=== PATIENT | male | born 1990 | race African-American/Black ===

== ENCOUNTER → 2017-03-08 | Outpatient (CLI) | payer OTHER ==
[~2017-03-08] MED LIST: LOMOTIL TABLET1 TAB PO; NO MEDICATIONS; ZOFRAN PO
--- NOTE | ~2017-03-08 | CR173 ---
[facility]. [facility] A Service of [facility] & [facility] RADIOLOGY TEXT RESULTS PATIENT: HUGH MARQUEZ LOCATION: [facility] : [birth year] UNIT #: [id number] AGE: [address]: Bo Flores MD SEX: M ORDER DR: [id number] [place] [id number] O MR#: [id number] Acc #: [id number] NAME: HUGH MARQUEZ : 1990 SEX: M STUDY DATE/TIME: 03/08/2017 14:07 UNIT: [facility] ROOM: STUDY DESCRIPTION: CR Knee 3 Views Rt Attending Physician: Bo Flores M.D. Referring Physician: Bo Flores M.D. Ordering Physician: Bo Flores M.D. Primary Care Physician: Bo Flores M.D. MEDICAL IMAGING REPORT This report is preliminary unless electronic signature is present. EXAM Right knee 3 views 03/08/2017 HISTORY Right knee pain for 3 days with swelling. Knee popping. FINDINGS AP and lateral projection of the knee shows smooth articular anatomy without indication of fracture or dislocation at the major weight-bearing surface of the knee. There is no indication of radiopaque foreign body about the knee surface or joint effusion. IMPRESSION Normal knee. Dictated by... Mohsen Ness M.D. THIS IS AN ELECTRONICALLY VERIFIED REPORT Mohsen Ness M.D. at 03/12/2017 9:19 AM KRT/pcl TD: 03/08/2017 17:44 JOB #: [id number] MEDICAL IMAGING REPORT Page 1 of 1
== END | disposition home or self-care (01) ==
LOC: SRAD 14:00
DX: M25.561 Pain in right knee (principal)
CPT/HCPCS: 73562